=== PATIENT | male | born 1960 ===

== ENCOUNTER 2025-05-19 23:00 | Emergency (ER) | payer BC ==
[~2025-05-19] VITALS: Ht 160 cm; Wt 90.3 kg
[2025-05-19 23:24] VITALS: PULSE 90; RESP 18; TEMP 101.1
[2025-05-19] MEDS ORDERED: TAMIFLU75 MG PO (23:58)
[2025-05-20] MEDS ORDERED: IBUPROFEN 600 MG TAB ONE
[2025-05-20] MEDS: IBUPROFEN 600 MG TAB PO STA (00:01)
[2025-05-20 00:07] VITALS: BP 146/70; PULSE 96; RESP 18; TEMP 101.1; O2SAT 96
== END 2025-05-20 00:07 | disposition home or self-care (01) ==
LOC: FSED 23:16
DX: R50.9 Fever, unspecified (principal); J10.1 Influenza due to other identified influenza virus with other respiratory manifestations; R05.9 Cough, unspecified; R51.9 Headache, unspecified; Z11.52 Encounter for screening for COVID-19
CPT/HCPCS: 0223U; 87400; 99283